=== PATIENT | female | born 1975 | race Two or more races ===

== ENCOUNTER 2023-07-07 18:04 | Emergency (ER) | payer MEDICAID, OTHER ==
[~2023-07-07] VITALS: Ht 144.8 cm; Wt 48.1 kg
[2023-07-07 19:40] VITALS: BP 104/62; PULSE 90; RESP 14; TEMP 98.4; O2SAT 98
== END 2023-07-07 20:00 | disposition home or self-care (01) ==
LOC: ER 18:04
DX: S06.0X1A Concussion with loss of consciousness of 30 minutes or less, initial encounter (principal); R51.9 Headache, unspecified; M54.2 Cervicalgia; Z88.2 Allergy status to sulfonamides; V87.8XXA Person injured in other specified noncollision transport accidents involving motor vehicle (traffic), initial encounter; Y93.55 Activity, bike riding; Y92.89 Other specified places as the place of occurrence of the external cause; Y99.8 Other external cause status
CPT/HCPCS: 70450; 72125